=== PATIENT | male | born 1995 | race Caucasian/White ===

== ENCOUNTER 2022-07-10 09:41 | Emergency (ER) | payer OTHER ==
[2022-07-10 11:26] VITALS: BP 115/62
== END 2022-07-10 11:30 | disposition home or self-care (01) ==
LOC: EMS 09:50
DX: S43.004A Unspecified dislocation of right shoulder joint, initial encounter (principal); X58.XXXA Exposure to other specified factors, initial encounter; Y93.89 Activity, other specified; Y92.89 Other specified places as the place of occurrence of the external cause; Y99.8 Other external cause status
CPT/HCPCS: 23650; 99284; 73030-TC; Z7502

== ENCOUNTER 2022-09-22 11:57 | Emergency (ER) | payer MEDICAID, OTHER ==
[~2022-09-22] VITALS: Ht 180.3 cm; Wt 119.0 kg
[2022-09-22 12:07] VITALS: TEMP 98.2
[2022-09-22 14:25] VITALS: BP 114/61; PULSE 68; RESP 16
== END 2022-09-22 14:36 | disposition home or self-care (01) ==
LOC: EMS 12:01
DX: F20.9 Schizophrenia, unspecified (principal); Z98.890 Other specified postprocedural states
CPT/HCPCS: 99281; Z7502

== ENCOUNTER 2022-11-03 19:51 | Emergency (ER) | payer MEDICAID ==
[~2022-11-03] VITALS: Ht 180.3 cm; Wt 118.2 kg
[2022-11-03 20:03] VITALS: TEMP 97.9
[2022-11-03] MEDS ORDERED: IBUPROFEN 600 MG TABLET PO ONE (21:30)
[2022-11-03] MEDS ORDERED: ACETAMINOPHEN 500 MG TABLET PO ONE (21:30)
[2022-11-03 22:00] VITALS: BP 131/79; PULSE 77; RESP 18
== END 2022-11-03 22:34 | disposition home or self-care (01) ==
LOC: EMS 19:51
DX: M79.672 Pain in left foot (principal); M79.671 Pain in right foot; F20.9 Schizophrenia, unspecified; F17.210 Nicotine dependence, cigarettes, uncomplicated
CPT/HCPCS: 99283

== ENCOUNTER 2025-01-19 13:41 | Emergency (ER) | payer MEDICAID, OTHER ==
[~2025-01-19] VITALS: Ht 180.3 cm; Wt 118.0 kg
[2025-01-19 15:27] VITALS: BP 136/77; PULSE 90; RESP 18; TEMP 98.6; O2SAT 98
[2025-01-19] MEDS: IBUPROFEN 600 MG TABLET PO ONE (16:42)
[2025-01-19] MEDS: HYDROCODONE/ACETAMINOPHEN 5-325 MG TABLET PO ONE (16:42)
== END 2025-01-19 17:20 ==
LOC: EMS 13:41
DX: S43.014A Anterior dislocation of right humerus, initial encounter (principal); F20.9 Schizophrenia, unspecified; F17.210 Nicotine dependence, cigarettes, uncomplicated; Z98.890 Other specified postprocedural states; W19.XXXA Unspecified fall, initial encounter; Y93.89 Activity, other specified; Y92.89 Other specified places as the place of occurrence of the external cause; Y99.8 Other external cause status
CPT/HCPCS: 23650; 99284; 73020-TC; 73030-TC; Z7502; Z7610